=== PATIENT | female | born 1995 | race African-American/Black ===

== ENCOUNTER 2021-06-16 20:06 | Observation (INO) | payer MEDICAID, SELFPAY ==
--- NOTE | ~2021-06-16 | US_ITS ---
EXAMINATION: US OB transvaginal DATE: 06/16/2021 22:22 INDICATION: Vaginal bleeding during first trimester TECHNIQUE: Real-time pelvic transabdominal and transvaginal ultrasound was performed. COMPARISON: None. FINDINGS: The uterus measures 12.2 x 7.2 x 6.4 cm. There is an intrauterine gestational sac. There i s a large subchorionic hemorrhage measuring approximately 3.6 x 4.9 x 2.9 cm. A yolk sac is identifie d. heart motion is identified measuring 155 beats per minute (bpm) by M-mode Doppler. The crown rump length measures 2.5 cm , which correlates with an estimated gestational age of 9 weeks an d 1 day(s) (+/-) 6 day(s). The ovaries are not visualized however no adnexal abnormality is seen. There is no free fluid in the pelvis. IMPRESSION: 1. Live intrauterine with an estimated gestational age of 9 weeks and 1 day(s) (+/-) 6 day( s) and an estimated delivery date of 01/18/2022. 2. Large subchorionic hemorrhage. Reviewed, dictated and finalized at location A. IMPRESSION: 1. Live intrauterine with an estimated gestational age of 9 weeks and 1 day(s) (+/-) 6 day(s) and an estimated delivery date of 01/18/2022. 2. Large subchorionic hemorrhage.
[2021-06-16 20:25] VITALS: BP 121/64; PULSE 109
[2021-06-16 20:30] VITALS: BMI 40.6
[2021-06-16 20:46] VITALS: BP 146/42; PULSE 98
[2021-06-16 21:11] LABS: Basophils Percent Auto 0.3 % (0.2-1.2); Eosinophils Absolute Auto 0.1 K/mm3 (0-0.3); Eosinophils Percent Auto 1.1 % (0-4.4); Hematocrit 40.1 % (37.0-47.0); Immature Granulocyte Absolute 0.03 K/mm3 (0.00-0.031); Immature Granulocyte Percent A 0.3 % (0-0.5); Lymphocytes Absolute Auto 2.85 K/mm3 (0.9-3.2); Lymphocytes Percent Auto 24.2 % (18.3-44.2); Mean Corpuscular HGB Conc 32.4 g/dl (32-36); Mean Corpuscular Hemoglobin 28.1 pg (26-34); Mean Corpuscular Volume 86.6 fl (80-100); Monocytes Absolute Auto 1.2 K/mm3 (0.1-0.6); Monocytes Percent Auto 9.8 % (2.6-8.5); Neutrophils Absolute Auto 7.6 K/mm3 (1.3-6.7); Neutrophils Percent Auto 64.3 % (45.5-73.1); Platelet Count Result 290 k/mm3 (150-375); Red Blood Count 4.63 M/mm3 (4.2-5.4); Red Cell Distribution Width 14.1 % (11.5-14.5); White Blood Count 11.8 K/mm3 (4.5-10.0)
[2021-06-16 21:24] LABS: Fibrinogen 296 mg/dl (215-510); INR 1.1; Prothrombin Time 14.1 Seconds (11.1-14.7)
[2021-06-16 21:25] LABS: Partial Thromboplastin Time 25.7 SECONDS (22.3-36.8)
--- NOTE | 2021-06-17 02:19 | OBADM ---
This patient, Shannon Pond, admitted to the OB room [facility] for observation. Patient/family oriented to hospital policies and general routines including ID bracelet, bed and alarms, visiting hours, pain management, procedures, bathroom and other care routines, personal items, smoking policy, room service/diet, and visiting hours. Patient/Family are encouraged to report perceived risks to care and to ask questions if they do not understand what they are told or what they should do.
--- NOTE | 2021-06-17 03:17 | PM.OBTRLD ---
OB - Triage/Final Diagnosis Visit Information Comments/Additional reasons for admission: I have assessed the risk for this patient, Shannon Pond, and determined that she would benefit from observation care. Evaluation Laboratory results: Laboratory Tests 06/16/21 06/16/21 06/16/21 21:03 21:03 21:03 WBC 11.8 H RBC 4.63 Hgb 13.0 Hct 40.1 MCV 86.6 MCH 28.1 MCHC 32.4 RDW 14.1 Plt Count 290 MPV 9.0 Immature Gran % (Auto) 0.3 Neut % (Auto) 64.3 Lymph % (Auto) 24.2 [place] % (Auto) 9.8 H Eos % (Auto) 1.1 Baso % (Auto) 0.3 Lymph # (Auto) 2.85 [place] # (Auto) 1.2 H Eos # (Auto) 0.1 Baso # (Auto) 0.0 Abs Immat Gran (auto) 0.03 Absolute Neuts (auto) 7.6 H Absolute Nucleated RBC 0.0 Nucleated RBC % 0.0 PT 14.1 INR 1.1 APTT 25.7 Fibrinogen 296 Blood Type B Positive Antibody Screen Negative Vital signs: Vital Signs - 24 hr 06/16/21 20:25 06/16/21 20:46 Pulse Rate 109 H 98 Blood Pressure 121/64 146/42 H Final Diagnosis (1) Subchorionic hematoma in first trimester: Code(s): O41.8X10 - Other specified disorders of amniotic fluid and membranes, first trimester, not applicable or unspecified; O46.8X1 - Other antepartum hemorrhage, first trimester Status: Acute
== END 2021-06-17 03:15 | disposition home or self-care (01) ==
PROVIDERS: Admitting Provider Obstetrics & Gynecology; Visit Provider Obstetrics & Gynecology
DX: O20.8 Other hemorrhage in early pregnancy (principal); Z3A.09 9 weeks gestation of pregnancy
CPT/HCPCS: 36415; 76817; 85025; 85384; 85610; 85730; 86850; 86900; 86901; G0378; G0379